=== PATIENT | female | born 1940 | race Caucasian/White ===

== ENCOUNTER 2017-10-30 12:47 | Inpatient (IN) | payer MEDICAID ==
[~2017-10-30] VITALS: Ht 160 cm; Wt 44.5 kg
[2017-10-30] MEDS ORDERED: VANCOMYCIN 1 GM in IV D5W 250 ML IV ONE (14:00)
[2017-10-30] MEDS ORDERED: PIPERACILLIN /TAZOBACTAM 3.375 G in IV D5W 50 ML IV ONE (14:00)
[2017-10-30 14:04] LABS: CALCIUM, SERUM 9.3 mg/dL (8.5-10.1); CARBON DIOXIDE 23 mmol/L (21-32); CHLORIDE 96 mmol/L (98-107); CREATININE 1.1 mg/dL (0.6-1.3); GLUCOSE 196 mg/dL (74-106); POTASSIUM 4.4 mmol/L (3.5-5.1); SODIUM SERUM 131 mmol/L (136-145); UREA NITROGEN, BLOOD 23 mg/dL (7-18)
[2017-10-30 14:05] LABS: HEMATOCRIT 27 % (33-45); HEMOGLOBIN 8.6 g/dL (11.5-14.8); INR 1.4 (0.85-1.15); LYMPHOCYTES % (AUTO) 21.7 % (20.0-44.0); MEAN CORPUSCULAR HEMOGLOBIN 21 PG (26.0-33.0); MEAN CORPUSCULAR HGB CONC 32 g/dl (31.0-36.0); MEAN CORPUSCULAR VOLUME 67 fL (82-100); NEUTROPHILS % (AUTO) 71.2 % (43.0-81.0); PLATELET COUNT (AUTO) 189 /CMM (150-450); RDW COEFFICIENT OF VARIATION 19.7 (11.5-15.0); RED BLOOD CELL COUNT(AUTO) 4.05 MIL/uL (4.0-5.2)
[2017-10-30 14:06] LABS: BASOPHILS % (AUTO) 0.7 % (0.0-2.0); EOSINOPHILS % (AUTO) 0.3 % (0.0-6.0); MONOCYTES % (AUTO) 6.1 % (2.0-12.0)
[2017-10-30 14:10] LABS: ALANINE AMINOTRANSFERASE 68 U/L (12-78); ALBUMIN 3.5 g/dL (3.4-5.0); ALKALINE PHOSPHATASE 85 U/L (46-116); ASPARTATE AMINOTRANSFERASE 62 U/L (15-37); BILIRUBIN,DIRECT 0.2 mg/dL (0.0-0.2); BILIRUBIN,TOTAL 0.4 mg/dL (0.2-1.0); TOTAL PROTEIN, SERUM 7.9 g/dL (6.4-8.2)
[2017-10-30 14:15] LABS: TROPONIN I < 0.017 ng/mL (0.00-0.056)
[2017-10-30 14:51] LABS: BAND % (MANUAL) 2 % (0.0-5.0); LYMPHOCYTES % (MANUAL) 24 % (16-48); MONOCYTES % (MANUAL) 6 % (0-11.0); NEUTROPHILS % (MANUAL) 68 (42-76)
[2017-10-30] MEDS ORDERED: IV NS 0.9% 1,000 ML BAG IV ONE (15:00)
[2017-10-30] MEDS ORDERED: ASPI-1169 PO (15:28)
[2017-10-30] MEDS ORDERED: LOSA1TAB36 PO (15:28)
[2017-10-30] MEDS ORDERED: METF10004 PO (15:28)
[2017-10-30] MEDS ORDERED: SIMV40TA5 PO (15:28)
[2017-10-30 16:29] VITALS: BP 129/72
[2017-10-30] MEDS ORDERED: MAGNESIUM HYDROXIDE 30 ML UDC PO PRN (18:00)
[2017-10-30] MEDS ORDERED: HYDROCODONE/APAP 5/325MG 1 EACH TABLET PO PRN (18:00)
[2017-10-30] MEDS ORDERED: MAG HYDROX/AL HYDROX/SIMETH 30 ML UDC PO PRN (18:00)
[2017-10-30] MEDS ORDERED: HYDROCODONE/APAP 10/325MG 1 EA TABLET PO PRN (18:00)
[2017-10-30] MEDS ORDERED: ONDANSETRON HCL/PF 4 MG/2 ML VIAL IVP PRN (18:00)
[2017-10-30] MEDS ORDERED: TEMAZEPAM 15 MG CAPSULE PO PRN (18:00)
[2017-10-30] MEDS ORDERED: ACETAMINOPHEN 325 MG TABLET PO PRN (18:00)
[2017-10-30] MEDS ORDERED: DEXTROSE 50%-WATER 50 ML DISP.SYRIN IV PRN (18:00)
[2017-10-30] MEDS ORDERED: FEE PK DOSING 1 MIN EA MC ONE (18:04)
[2017-10-30] MEDS: IV NS 0.9% 1,000 ML IV PRN (18:09)
[2017-10-30 19:54] VITALS: BP 125/65
[2017-10-30 20:06] VITALS: BP 125/65
[2017-10-30] MEDS: CEFTRIAXONE 1 G in IV D5W 50 ML IV SCH (20:10)
[2017-10-30] MEDS: BLOOD SUGAR DIAGNOSTIC 1 EACH STRIP IN SCH (21:57)
[2017-10-30] MEDS: INSULIN REGULAR, HUMAN 100 UNIT/ML 3 ML VIAL SQ PRN (22:04)
[2017-10-31] MEDS: BLOOD SUGAR DIAGNOSTIC 1 EACH STRIP IN SCH ×4 (06:15→21:22)
[2017-10-31 06:45] LABS: CHOLESTEROL 67 mg/dL (<200); HDL CHOLESTEROL 33 mg/dL (40-60); LDL 27 mg/dL (0-99); TRIGLYCERIDES 79 mg/dL (30-150)
[2017-10-31] MEDS: IV NS 0.9% 1,000 ML IV PRN ×2 (06:50→21:28)
[2017-10-31 06:54] LABS: CALCIUM, SERUM 8.2 mg/dL (8.5-10.1); CARBON DIOXIDE 28 mmol/L (21-32); CHLORIDE 102 mmol/L (98-107); CREATININE 0.8 mg/dL (0.6-1.3); GLUCOSE 121 mg/dL (74-106); MAGNESIUM 1.4 mg/dL (1.8-2.4); PHOSPHORUS 3.4 mg/dL (2.5-4.9); POTASSIUM 3.7 mmol/L (3.5-5.1); SODIUM SERUM 137 mmol/L (136-145); UREA NITROGEN, BLOOD 18 mg/dL (7-18)
[2017-10-31 07:00] LABS: BASOPHILS % (AUTO) 0.1 % (0.0-2.0); EOSINOPHILS % (AUTO) 1.6 % (0.0-6.0); HEMATOCRIT 24 % (33-45); HEMOGLOBIN 7.7 g/dL (11.5-14.8); LYMPHOCYTES # (AUTO) 1.6 /CMM (0.8-4.8); LYMPHOCYTES % (AUTO) 31.9 % (20.0-44.0); MEAN CORPUSCULAR HEMOGLOBIN 22 PG (26.0-33.0); MEAN CORPUSCULAR HGB CONC 32 g/dl (31.0-36.0); MEAN CORPUSCULAR VOLUME 67 fL (82-100); MONOCYTES # (AUTO) 0.3 /CMM (0.1-1.30); MONOCYTES % (AUTO) 6.8 % (2.0-12.0); NEUTROPHILS # (AUTO) 3.1 /CMM (1.8-8.9); NEUTROPHILS % (AUTO) 59.6 % (43.0-81.0); PLATELET COUNT (AUTO) 136 /CMM (150-450); RED BLOOD CELL COUNT(AUTO) 3.54 MIL/uL (4.0-5.2); WHITE BLOOD COUNT (AUTO) 5.1 K/uL (4.3-11.0)
[2017-10-31 08:24] LABS: FERRITIN 17 ng/mL (8-388)
[2017-10-31 08:26] VITALS: BP 147/79
[2017-10-31 08:35] LABS: IRON, SERUM 30 ug/dl (50-175); TOTAL IRON BINDING CAPACITY 457 ug/dl (250-450)
[2017-10-31] MEDS: Magnesium 1GM/D5W 100ML PREMIX 100 ML IV SCH ×4 (10:55→14:43)
[2017-10-31] MEDS: INSULIN REGULAR, HUMAN 100 UNIT/ML 3 ML VIAL SQ PRN ×3 (12:03→21:32)
[2017-10-31 16:01] VITALS: BP 154/78
[2017-10-31] MEDS: VANCOMYCIN 500 MG in IV D5W 100 ML IV SCH (16:21)
[2017-10-31] MEDS: FERROUS SULFATE (325 MG) 325 MG/TAB TABLET PO SCH (17:18)
[2017-10-31 20:00] VITALS: BP 180/75
[2017-10-31] MEDS: CEFTRIAXONE 1 G in IV D5W 50 ML IV SCH (21:22)
[2017-11-01 06:18] LABS: BASOPHILS % (AUTO) 0.6 % (0.0-2.0); EOSINOPHILS % (AUTO) 0.9 % (0.0-6.0); HEMATOCRIT 25 % (33-45); HEMOGLOBIN 7.9 g/dL (11.5-14.8); LYMPHOCYTES # (AUTO) 1.3 /CMM (0.8-4.8); LYMPHOCYTES % (AUTO) 24.2 % (20.0-44.0); MEAN CORPUSCULAR HEMOGLOBIN 21 PG (26.0-33.0); MEAN CORPUSCULAR HGB CONC 32 g/dl (31.0-36.0); MEAN CORPUSCULAR VOLUME 66 fL (82-100); MONOCYTES # (AUTO) 0.4 /CMM (0.1-1.30); MONOCYTES % (AUTO) 7.9 % (2.0-12.0); NEUTROPHILS # (AUTO) 3.5 /CMM (1.8-8.9); NEUTROPHILS % (AUTO) 66.4 % (43.0-81.0); PLATELET COUNT (AUTO) 116 /CMM (150-450); RDW COEFFICIENT OF VARIATION 19.9 (11.5-15.0); RED BLOOD CELL COUNT(AUTO) 3.73 MIL/uL (4.0-5.2); WHITE BLOOD COUNT (AUTO) 5.2 K/uL (4.3-11.0)
[2017-11-01] MEDS: BLOOD SUGAR DIAGNOSTIC 1 EACH STRIP IN SCH ×4 (06:38→21:23)
[2017-11-01] MEDS: INSULIN REGULAR, HUMAN 100 UNIT/ML 3 ML VIAL SQ PRN ×4 (06:38→21:27)
[2017-11-01 07:09] LABS: CARBON DIOXIDE 25 mmol/L (21-32); CHLORIDE 102 mmol/L (98-107); GLUCOSE 182 mg/dL (74-106); MAGNESIUM 1.8 mg/dL (1.8-2.4); POTASSIUM 3.6 mmol/L (3.5-5.1); SODIUM SERUM 137 mmol/L (136-145); UREA NITROGEN, BLOOD 14 mg/dL (7-18)
[2017-11-01 07:21] LABS: CREATININE 0.8 mg/dL (0.6-1.3)
[2017-11-01 08:00] VITALS: BP 155/69
[2017-11-01] MEDS: FERROUS SULFATE (325 MG) 325 MG/TAB TABLET PO SCH ×2 (08:49→16:17)
[2017-11-01] MEDS: IV NS 0.9% 1,000 ML IV PRN (11:37)
[2017-11-01] MEDS: VANCOMYCIN 500 MG in IV D5W 100 ML IV SCH (14:22)
[2017-11-01 16:00] VITALS: BP 155/70
[2017-11-01 20:00] VITALS: BP 143/70
[2017-11-01] MEDS: CEFTRIAXONE 1 G in IV D5W 50 ML IV SCH (20:57)
[2017-11-02 06:24] LABS: BASOPHILS % (AUTO) 0.2 % (0.0-2.0); HEMATOCRIT 25 % (33-45); LYMPHOCYTES # (AUTO) 1.4 /CMM (0.8-4.8); LYMPHOCYTES % (AUTO) 25.4 % (20.0-44.0); MEAN CORPUSCULAR HEMOGLOBIN 22 PG (26.0-33.0); MEAN CORPUSCULAR HGB CONC 32 g/dl (31.0-36.0); MEAN CORPUSCULAR VOLUME 68 fL (82-100); MONOCYTES # (AUTO) 0.5 /CMM (0.1-1.30); MONOCYTES % (AUTO) 8.9 % (2.0-12.0); NEUTROPHILS # (AUTO) 3.5 /CMM (1.8-8.9); NEUTROPHILS % (AUTO) 64.5 % (43.0-81.0); PLATELET COUNT (AUTO) 139 /CMM (150-450); RDW COEFFICIENT OF VARIATION 21.6 (11.5-15.0); WHITE BLOOD COUNT (AUTO) 5.5 K/uL (4.3-11.0)
[2017-11-02 06:39] LABS: CALCIUM, SERUM 8.2 mg/dL (8.5-10.1); CARBON DIOXIDE 25 mmol/L (21-32); CHLORIDE 105 mmol/L (98-107); CREATININE 0.7 mg/dL (0.6-1.3); GLUCOSE 150 mg/dL (74-106); POTASSIUM 3.5 mmol/L (3.5-5.1); SODIUM SERUM 138 mmol/L (136-145); UREA NITROGEN, BLOOD 10 mg/dL (7-18)
[2017-11-02] MEDS: IV NS 0.9% 1,000 ML IV PRN (07:05)
[2017-11-02] MEDS: BLOOD SUGAR DIAGNOSTIC 1 EACH STRIP IN SCH ×2 (07:06→12:15)
[2017-11-02] MEDS: INSULIN REGULAR, HUMAN 100 UNIT/ML 3 ML VIAL SQ PRN ×2 (07:09→12:15)
[2017-11-02 08:00] VITALS: BP 140/66
[2017-11-02 08:03] VITALS: BP 140/66
[2017-11-02] MEDS: FERROUS SULFATE (325 MG) 325 MG/TAB TABLET PO SCH (08:14)
[2017-11-02] MEDS ORDERED: CLIN300C11 PO (14:33)
[2017-11-02] MEDS ORDERED: FERR325T28 PO (14:37)
[2017-11-02] MEDS: VANCOMYCIN 500 MG in IV D5W 100 ML IV SCH (15:22)
[2017-11-02 16:00] VITALS: BP 172/69
[2017-11-02] MEDS ORDERED: VANCOMYCIN 500 MG in IV NS 0.9% 100 ML IV SCH (16:00)
[2017-11-02] MEDS ORDERED: LACTOBACILLUS RHAMNOSUS GG 1 EACH CAP.SPRINK PO SCH (17:00)
== END 2017-11-02 16:30 | disposition home or self-care (01) | DRG 383 ==
LOC: ER 12:52 → MED 15:11 → MEDSG2 10-31 19:55
PROVIDERS: ADMIT Nurse Practitioner Acute Care; ATTEND Nurse Practitioner Acute Care
DX: L03.114 Cellulitis of left upper limb (principal); E87.2 Acidosis; E83.42 Hypomagnesemia; E11.9 Type 2 diabetes mellitus without complications; I10 Essential (primary) hypertension; D50.9 Iron deficiency anemia, unspecified; E78.5 Hyperlipidemia, unspecified; I70.90 Unspecified atherosclerosis; Z79.84 Long term (current) use of oral hypoglycemic drugs; T38.3X5A Adverse effect of insulin and oral hypoglycemic [antidiabetic] drugs, initial encounter; Y92.009 Unspecified place in unspecified non-institutional (private) residence as the place of occurrence of the external cause
CPT/HCPCS: 36415; 71045-TC; 80048-TC; 80061-TC; 80076-TC; 80202-TC; 82728-TC; 82962-TC; 83540-TC; 83605-TC; 83735-TC; 84100-TC; 84484-TC; 85025-TC; 85730-TC; 87040-TC; 87081-TC; A4606; J0696; J1815; J2405; J2543; J3370; J3475; J7030; J7060; Z7610

== ENCOUNTER 2017-11-17 20:45 | Emergency (ER) | payer MEDICAID ==
[~2017-11-17] VITALS: Ht 165.1 cm; Wt 61.2 kg
[~2017-11-17 20:45] MED LIST: ASPI-1169 PO; CLIN300C11 PO; FERR325T28 PO; LOSA1TAB36 PO; METF10004 PO; SIMV40TA5 PO
[2017-11-17 21:04] VITALS: BP 201/98
[2017-11-17] MEDS ORDERED: TETRACAINE HCL/PF 0.5% UD 2 ML BOTTLE RIGHTEYE ONE (22:30)
[2017-11-17] MEDS ORDERED: TONO PEN in ED SUPPLY ONICELL 1 EA MC ONE (22:30)
[2017-11-17] MEDS ORDERED: TETRACAINE HCL/PF 0.5% UD 2 ML BOTTLE ONE (22:32)
[2017-11-17] MEDS ORDERED: ACETAMINOPHEN 325 MG TABLET PO ONE (23:30)
[2017-11-17] MEDS ORDERED: ACETAMINOPHEN 325 MG TABLET ONE (23:34)
[2017-11-18] MEDS ORDERED: AMOX/CLAVULANATE 875 MG TABLET ONE (00:13)
[2017-11-18] MEDS ORDERED: AMOX/CLAVULANATE 875 MG TABLET PO ONE (00:30)
== END 2017-11-18 00:25 | disposition home or self-care (01) ==
LOC: ER 20:49
DX: L03.213 Periorbital cellulitis (principal); I10 Essential (primary) hypertension; E11.9 Type 2 diabetes mellitus without complications; Z79.82 Long term (current) use of aspirin; Z79.84 Long term (current) use of oral hypoglycemic drugs; Z79.899 Other long term (current) drug therapy
CPT/HCPCS: 99284; A4606; Z7610

== ENCOUNTER 2018-04-18 12:37 | Emergency (ER) | payer MEDICAID ==
[~2018-04-18] VITALS: Ht 147.3 cm; Wt 43.5 kg
[~2018-04-18 12:37] MED LIST changes: -CLIN300C11 PO; +ESCI10TA PO; -FERR325T28 PO; -LOSA1TAB36 PO; +LOSA1TAB9 PO; -METF10004 PO; -SIMV40TA5 PO; +SODI15DR4 EACHEYE
--- NOTE | 2018-04-18 12:48 | NUR ---
BIB FAMILY, DUE TO HIGH BLOOD PRESSURE (DYN=193) AND ELEVATED BLOOD SUGAR(214) ALSO C/O URINARY FREQUENCY. TO ER BED 2, CHANGED TO GOWN, HOOKED TO MONITOR, WAITING MD [facility]
[2018-04-18 13:12] LABS: BASOPHILS % (AUTO) 0.9 % (0.0-2.0); HEMATOCRIT 32 % (33-45); HEMOGLOBIN 9.9 g/dL (11.5-14.8); LYMPHOCYTES # (AUTO) 0.9 /CMM (0.8-4.8); LYMPHOCYTES % (AUTO) 20.6 % (20.0-44.0); MEAN CORPUSCULAR HGB CONC 31 g/dl (31.0-36.0); MEAN CORPUSCULAR VOLUME 76 fL (82-100); MONOCYTES # (AUTO) 0.4 /CMM (0.1-1.30); MONOCYTES % (AUTO) 8.5 % (2.0-12.0); NEUTROPHILS # (AUTO) 2.9 /CMM (1.8-8.9); PLATELET COUNT (AUTO) 116 /CMM (150-450); RED BLOOD CELL COUNT(AUTO) 4.16 MIL/uL (4.0-5.2); WHITE BLOOD COUNT (AUTO) 4.2 K/uL (4.3-11.0)
[2018-04-18] MEDS ORDERED: CLONIDINE HCL 0.1 MG TABLET ONE ×2 (13:12→14:01)
[2018-04-18] MEDS ORDERED: CLONIDINE HCL 0.1 MG TABLET PO ONE ×2 (13:30→14:00)
[2018-04-18 13:31] LABS: CALCIUM, SERUM 9.2 mg/dL (8.5-10.1); CARBON DIOXIDE 28 mmol/L (21-32); CHLORIDE 99 mmol/L (98-107); CREATININE 0.6 mg/dL (0.6-1.3); GLUCOSE 213 mg/dL (74-106); POTASSIUM 4.3 mmol/L (3.5-5.1); SODIUM SERUM 135 mmol/L (136-145); UREA NITROGEN, BLOOD 15 mg/dL (7-18)
--- NOTE | 2018-04-18 13:32 | NUR ---
PT IS WHEELED TO CT SCAN VIA [facility].
[2018-04-18 13:36] LABS: ALANINE AMINOTRANSFERASE 60 U/L (12-78); ALBUMIN 3.4 g/dL (3.4-5.0); ALKALINE PHOSPHATASE 72 U/L (46-116); ASPARTATE AMINOTRANSFERASE 54 U/L (15-37); BILIRUBIN,DIRECT 0.2 mg/dL (0.0-0.2); BILIRUBIN,TOTAL 0.5 mg/dL (0.2-1.0); LIPASE 337 U/L (73-393); TOTAL PROTEIN, SERUM 7.5 g/dL (6.4-8.2)
--- NOTE | 2018-04-18 14:02 | NUR ---
CALLED OFFICE OF DR MOJICA(OUT OF TOWN) MD WAGNER WAS PAGED.
[2018-04-18] MEDS ORDERED: AMLODIPINE BESYLATE 5 MG TABLET ONE (14:20)
[2018-04-18] MEDS ORDERED: AMLODIPINE BESYLATE 5 MG TABLET PO ONE (14:30)
--- NOTE | 2018-04-18 14:38 | NUR ---
Patient discharged to home with family in stable condition. Written and verbal after care instructions given. Patient and family verbalizes understanding of instruction.
[2018-04-18 14:47] VITALS: BP 172/80
== END 2018-04-18 14:48 | disposition home or self-care (01) ==
LOC: ER 12:40
DX: I10 Essential (primary) hypertension (principal); E11.65 Type 2 diabetes mellitus with hyperglycemia; Z79.82 Long term (current) use of aspirin; Z79.899 Other long term (current) drug therapy
CPT/HCPCS: 36415; 70450; 71045; 80048; 80076; 83690; 84484; 85025; 85730; 93005; 99284; A4606; Z7610